=== PATIENT | male | born 1945 | race Caucasian/White ===

== ENCOUNTER 2018-04-14 05:57 | Day surgery (SDC) | payer MEDICARE, OTHER ==
[2018-04-12 10:41] LABS: BASOPHILS # (AUTO) 0.1 X10'3 (0-0.2); BASOPHILS % (AUTO) 0.9 % (0-1); EOSINOPHILS # (AUTO) 0.3 X10'3 (0-0.9); EOSINOPHILS % (AUTO) 4.6 % (0-6); HEMATOCRIT 42.9 % (42.0-52.0); HEMOGLOBIN 14.9 g/dl (14.0-17.9); LYMPHOCYTES # (AUTO) 1.8 X10'3 (1.1-4.8); LYMPHOCYTES % (AUTO) 31.9 % (21-51); MEAN CORPUSCULAR HEMOGLOBIN 31.9 PG (27.0-31.0); MEAN CORPUSCULAR HGB CONC 34.7 % (33.0-36.5); MEAN PLATELET VOLUME 7.9 FL (7.4-10.4); MONOCYTES # (AUTO) 0.4 X10'3 (0-0.9); MONOCYTES % (AUTO) 7.6 % (2-12); NEUTROPHILS # (AUTO) 3.2 X10'3 (1.8-7.7); PLATELET COUNT 200 X10'3 (140-440); RED BLOOD COUNT 4.66 X10'6 (4.70-6.10); RED CELL DISTRIBUTION WIDTH 12.1 % (11.5-14.5); WHITE BLOOD COUNT 5.8 X10'3 (4.5-11.0)
[2018-04-12 10:42] LABS: PARTIAL THROMBOPLASTIN TIME 27 SECONDS (22-32)
[2018-04-12 10:46] LABS: GLUCOSE 140 MG/DL (70-104)
[2018-04-12 10:47] LABS: ALANINE AMINOTRANSFERASE 21 U/L (12-78); ALBUMIN 3.8 G/DL (3.4-5.0); ALBUMIN/GLOBULIN RATIO 1.1 (1.1-1.5); ALKALINE PHOSPHATASE 97 IU/L (46-116); ANION GAP 7 (8-16); ASPARTATE AMINO TRANSFERASE 19 U/L (10-37); BILIRUBIN,TOTAL 0.4 MG/DL (0.1-1.0); BLOOD UREA NITROGEN 16 MG/DL (7-18); BUN/CREATININE RATIO 16.2 (5.4-32.0); CALCIUM 9.1 MG/DL (8.5-10.1); CHLORIDE 104 MMOL/L (99-107); CREATININE 0.99 MG/DL (0.60-1.10); POTASSIUM 4.4 MMOL/L (3.5-5.1); SODIUM 138 MMOL/L (135-145); TOTAL CARBON DIOXIDE 27.1 MMOL/L (24-32); TOTAL PROTEIN 7.3 G/DL (6.4-8.2); eGFR 74 ML/MIN
[2018-04-14] VITALS (15 sets, daily range): BP systolic 112–166; BP diastolic 52–109
[~2018-04-14] VITALS: Ht 182.9 cm; Wt 111.8 kg
[~2018-04-14 05:57] MED LIST: ASPI-611 PO; CINN500C2 PO; MULT-38 PO; OMEG500C3 PO; RAMI2.5C26 PO; RED600TA PO
[2018-04-14] MEDS ORDERED: diphenhydrAMINE 25mg capsule PO PRN (06:10)
[2018-04-14] MEDS ORDERED: dextrose ORAL solution 15 GM/59 ML bottle PO PRN ×2 (06:10)
[2018-04-14] MEDS ORDERED: insulin Lispro (HumaLOG) vial - multi-dose SQ SCH (06:10)
[2018-04-14] MEDS ORDERED: MESSAGE TO PHARMACY PO ONE (06:10)
[2018-04-14] MEDS ORDERED: glucagon, human recombinant 1mg kit SUBCUT PRN (06:10)
[2018-04-14] MEDS ORDERED: LORazepam 0.5 MG tablet PO PRN (06:10)
[2018-04-14] MEDS ORDERED: normal saline 1000ml 1,000 ML IV SCH ×2 (06:10→09:55)
[2018-04-14] MEDS ORDERED: nitroGLYCERIN 0.4mg SUBLingual tab SL PRN (06:10)
[2018-04-14] MEDS ORDERED: dextrose 50%-water 50ml dispensing syringe IV PRN ×2 (06:10)
[2018-04-14] MEDS ORDERED: METF500T PO (06:25)
[2018-04-14] MEDS ORDERED: LOSA25TA96 PO (06:25)
[2018-04-14] MEDS ORDERED: CHOL10002 PO (06:25)
[2018-04-14] MEDS ORDERED: FLEC100T2 PO (06:25)
[2018-04-14] MEDS ORDERED: iohexol 350 MG/ML 50ML vial IV ONE (08:08)
[2018-04-14] MEDS ORDERED: fentaNYL/PF 50MCG/1 ML 2ML syringe ONE (08:08)
[2018-04-14] MEDS ORDERED: LIDOcaine 1% 30ml preserv. free vial ONE (08:08)
[2018-04-14] MEDS ORDERED: iohexol 350MG/ML 100ml bottle IV ONE (08:08)
[2018-04-14] MEDS ORDERED: midazolam 2 mg/2 ml injection ONE ×2 (08:08→09:10)
[2018-04-14] MEDS ORDERED: OXAZEpam 15mg capsule PO PRN (09:55)
[2018-04-14] MEDS ORDERED: ondansetron/PF 4mg/2ml inj IV PRN (09:55)
[2018-04-14] MEDS ORDERED: HYDROcodone/acetaminophen 5mg/325mg tablet PO PRN (09:55)
[2018-04-14] MEDS ORDERED: HYDROcodone/acetaminophen 10/325mg tab PO PRN (09:55)
[2018-04-14] MEDS ORDERED: proCHLORperazine 10 MG/2 ml inj IV PRN (09:55)
[2018-04-14] MEDS ORDERED: insulin glargine (Lantus) pen - multi-dose SQ SCH (21:00)
== END 2018-04-14 17:00 | disposition home or self-care (01) ==
LOC: SSTAY O 05:57
PROVIDERS: ATTEND Internal Medicine Cardiovascular Disease
DX: I25.10 Atherosclerotic heart disease of native coronary artery without angina pectoris (principal); I44.0 Atrioventricular block, first degree; I45.19 Other right bundle-branch block; D65 Disseminated intravascular coagulation [defibrination syndrome]; I10 Essential (primary) hypertension; E11.9 Type 2 diabetes mellitus without complications; M85.88 Other specified disorders of bone density and structure, other site; I48.91 Unspecified atrial fibrillation; E78.5 Hyperlipidemia, unspecified; Z90.79 Acquired absence of other genital organ(s); Z85.46 Personal history of malignant neoplasm of prostate; Z85.828 Personal history of other malignant neoplasm of skin; Z85.51 Personal history of malignant neoplasm of bladder; Z95.1 Presence of aortocoronary bypass graft; Z79.82 Long term (current) use of aspirin; Z79.84 Long term (current) use of oral hypoglycemic drugs; Z79.899 Other long term (current) drug therapy; Z98.890 Other specified postprocedural states; Z82.49 Family history of ischemic heart disease and other diseases of the circulatory system; Z83.511 Family history of glaucoma; Z82.3 Family history of stroke
CPT/HCPCS: 36415; 71046; 80053; 82948; 85025; 85610; 85730; 93005; 93459; 99152; 99153; A6257; C1760; C1769; J1644; J2250; J3010; J3490; J7030; Q0163; Q9967; A4620

== ENCOUNTER 2022-04-02 06:10 | Observation (INO) | payer MEDICARE, OTHER ==
[2022-03-31 12:35] LABS: BASOPHILS % (AUTO) 0.7 % (0-1); EOSINOPHILS # (AUTO) 0.3 X10'3 (0-0.9); HEMATOCRIT 42.6 % (42.0-52.0); HEMOGLOBIN 14.7 g/dl (14.0-17.9); LYMPHOCYTES # (AUTO) 2.1 X10'3 (1.1-4.8); LYMPHOCYTES % (AUTO) 31.6 % (21-51); MEAN CORPUSCULAR HEMOGLOBIN 31.3 PG (27.0-31.0); MEAN CORPUSCULAR HGB CONC 34.5 g/dL (33.0-36.5); MEAN CORPUSCULAR VOLUME 90.8 FL (78-98); MEAN PLATELET VOLUME 7.9 FL (7.4-10.4); MONOCYTES # (AUTO) 0.6 X10'3 (0-0.9); MONOCYTES % (AUTO) 9.2 % (2-12); NEUTROPHILS # (AUTO) 3.6 X10'3 (1.8-7.7); NEUTROPHILS % (AUTO) 54.5 % (42-75); PLATELET COUNT 243 X10'3 (140-440); RED BLOOD COUNT 4.69 X10'6 (4.70-6.10); RED CELL DISTRIBUTION WIDTH 13.1 % (11.5-14.5); WHITE BLOOD COUNT 6.6 X10'3 (4.5-11.0)
[2022-03-31 12:47] LABS: APTT 29 SECONDS (22-32)
[2022-03-31 12:50] LABS: ALANINE AMINOTRANSFERASE 19 U/L (12-78); ALKALINE PHOSPHATASE 104 IU/L (46-116); ANION GAP 12 (8-16); ASPARTATE AMINO TRANSFERASE 17 U/L (10-37); BILIRUBIN,TOTAL 0.4 MG/DL (0.1-1.0); BLOOD UREA NITROGEN 34 MG/DL (7-18); BUN/CREATININE RATIO 22.2 (5.4-32.0); CALCIUM 9.8 MG/DL (8.5-10.1); CHLORIDE 103 MMOL/L (99-107); CREATININE 1.53 MG/DL (0.60-1.10); GLUCOSE 184 MG/DL (70-104); POTASSIUM 4.9 MMOL/L (3.5-5.1); SODIUM 140 MMOL/L (135-145); TOTAL CARBON DIOXIDE 24.9 MMOL/L (24-32); eGFR 44 ML/MIN
[~2022-04-02] VITALS: Ht 182.9 cm; Wt 107.6 kg
[2022-04-02] VITALS (13 sets, daily range): BP systolic 98–137; BP diastolic 51–84
[~2022-04-02 06:10] MED LIST changes: +CHOL10002 PO; +FLEC100T2 PO; +LOSA25TA96 PO; +METF500T PO; -MULT-38 PO; -RAMI2.5C26 PO
[2022-04-02] MEDS ORDERED: LORazepam 0.5 MG tablet PO PRN (06:45)
[2022-04-02] MEDS ORDERED: nitroGLYCERIN 0.4mg SUBLingual tab SL PRN ×2 (06:45→10:55)
[2022-04-02] MEDS ORDERED: diphenhydrAMINE 25mg capsule PO PRN (06:45)
[2022-04-02] MEDS ORDERED: normal saline 1,000 ML IV SCH (06:45)
[2022-04-02] MEDS ORDERED: GEMF600T89 PO (07:16)
[2022-04-02] MEDS ORDERED: SEMA2PEN SQ (07:16)
[2022-04-02] MEDS ORDERED: METO-395 PO (07:16)
[2022-04-02] MEDS ORDERED: APIX5TAB3 PO (07:16)
[2022-04-02] MEDS ORDERED: midazolam 1 mg/ML 2ml injection ONE (07:40)
[2022-04-02] MEDS ORDERED: iohexol 350MG/ML 100ml bottle IV ONE ×3 (07:40→09:19)
[2022-04-02] MEDS ORDERED: LIDOcaine 1%/PF 5ML 10 MG/ML VIAL ONE (07:40)
[2022-04-02] MEDS ORDERED: fentaNYL/PF 50MCG/1 ML 2ML syringe ONE (07:40)
[2022-04-02] MEDS ORDERED: heparin 25,000 UNIT/250ml bag 0 ML IV ONE (09:01)
[2022-04-02] MEDS ORDERED: tirofiban 5mg in NS 100mL 0 ML IV ONE (09:01)
[2022-04-02] MEDS ORDERED: heparin 1,000unit/ml 10ml vial 10 ML ONE (09:02)
[2022-04-02] MEDS ORDERED: tirofiban 5mg in NS 100mL 100 ML IV ONE (09:12)
[2022-04-02] MEDS ORDERED: ticagrelor 90mg tablet ONE (09:54)
[2022-04-02] MEDS ORDERED: aspirin 325mg tablet ONE (09:55)
[2022-04-02] MEDS ORDERED: OXAZEpam 15mg capsule PO PRN (10:55)
[2022-04-02] MEDS ORDERED: proCHLORperazine 10 MG/2 ml inj IV PRN (10:55)
[2022-04-02] MEDS ORDERED: magnesium hydroxide 30ml (MOM) UD suspension PO PRN (10:55)
[2022-04-02] MEDS ORDERED: cyclobenzaprine 10mg tablet PO PRN (10:55)
[2022-04-02] MEDS ORDERED: acetaminophen 325mg tablet PO PRN ×2 (10:55→11:35)
[2022-04-02] MEDS ORDERED: HYDROcodone/acetaminophen 10/325mg tab PO PRN ×2 (10:55)
[2022-04-02] MEDS ORDERED: ticagrelor 90mg tablet PO ONE (11:00)
[2022-04-02] MEDS ORDERED: tirofiban 12.5mg in NS 250mL IV SCH (11:00)
[2022-04-02] MEDS ORDERED: ondansetron/PF 4mg/2ml inj IV PRN ×2 (11:05→11:35)
[2022-04-02] MEDS ORDERED: HYDROcodone/acetaminophen 5mg/325mg tablet PO PRN (11:05)
[2022-04-02] MEDS ORDERED: TIROFIBAN IV SCH (11:31)
[2022-04-02] MEDS ORDERED: NS IV SCH (11:31)
[2022-04-02] MEDS ORDERED: dextrose 50%-water 50ml dispensing syringe IV PRN ×2 (11:35)
[2022-04-02] MEDS ORDERED: insulin Lispro (HumaLOG) vial - multi-dose SQ SCH (11:35)
[2022-04-02] MEDS ORDERED: DEXTROSE 15 GM of carb/4 tabs (each vial/BOTTLE has 4 tablets) PO PRN ×2 (11:35)
[2022-04-02] MEDS ORDERED: POTASSIUM BICARB 20meq eff tab 20 MEQ TABLET.EFF PO PRN ×2 (11:35)
[2022-04-02] MEDS ORDERED: magnesium 4gm in 100ml NS 100 ML IV PRN (11:35)
[2022-04-02] MEDS ORDERED: potassium CL 10mEq/100ml bag 100 ML IV PRN (11:35)
[2022-04-02] MEDS ORDERED: mag hydrox/Alum hydrox/simeth 30ml oral suspension PO PRN (11:35)
[2022-04-02] MEDS ORDERED: magnesium 2GM in 50ml NS 50 ML IV PRN (11:35)
[2022-04-02] MEDS ORDERED: glucagon, human recombinant 1mg kit SUBCUT PRN (11:35)
[2022-04-02] MEDS ORDERED: MESSAGE TO PHARMACY PO ONE (11:35)
[2022-04-02] MEDS ORDERED: tirofiban 5mg in NS 100mL 100 ML IV SCH (11:36)
[2022-04-02] MEDS: sodium chloride 0.45% 1,000 ML IV SCH ×2 (11:59→23:05)
--- NOTE | 2022-04-02 14:00 | NUR ---
Received report from Flora MASSEY. VSS, Denies pain, Sheath to right groin site stable.
--- NOTE | 2022-04-02 14:15 | NUR ---
CCL at bedsied, sheath removed and angioseal inplanted. Pt tolerated procedure well.
[2022-04-02] MEDS ORDERED: CHOL400T8 PO (15:25)
--- NOTE | 2022-04-02 16:00 | NUR ---
Transferred pt to room 3015B with all belongings, at bedside. Report given to [place] MASSEY. VSS, denies pain, right groin site stable, dressing CD&I.
--- NOTE | 2022-04-02 18:21 | NUR ---
Problems reprioritized. Patient report given, questions answered & plan of care reviewed with SHILPA KEARNS.
[2022-04-02] MEDS ORDERED: docusate sod 100mg capsule PO SCH (20:00)
[2022-04-02] MEDS ORDERED: gemfibrozil 600mg tablet PO SCH (20:00)
[2022-04-02] MEDS: apixaban 5mg tablet PO SCH (20:59)
[2022-04-02] MEDS: ticagrelor 90mg tablet PO SCH (20:59)
[2022-04-02] MEDS ORDERED: insulin glargine (Lantus) pen - multi-dose SQ SCH (21:00)
[2022-04-02] MEDS: docusate sod 100mg capsule PO SCH (21:01)
[2022-04-02] MEDS: K and/or MAG REPLACEMENT MC SCH (21:14)
[2022-04-03 02:00] VITALS: BP 128/70
[2022-04-03 06:00] VITALS: BP 120/73
--- NOTE | 2022-04-03 06:25 | NUR ---
Problems reprioritized. Patient report given, questions answered & plan of care reviewed with SHILPA Schofield.
[2022-04-03 06:36] LABS: BASOPHILS % (AUTO) 0.5 % (0-1); EOSINOPHILS # (AUTO) 0.3 X10'3 (0-0.9); HEMOGLOBIN 13.9 g/dl (14.0-17.9); LYMPHOCYTES # (AUTO) 1.5 X10'3 (1.1-4.8); LYMPHOCYTES % (AUTO) 22.4 % (21-51); MEAN CORPUSCULAR HEMOGLOBIN 32.2 PG (27.0-31.0); MEAN CORPUSCULAR HGB CONC 35.7 g/dL (33.0-36.5); MEAN CORPUSCULAR VOLUME 90.3 FL (78-98); MEAN PLATELET VOLUME 7.9 FL (7.4-10.4); MONOCYTES # (AUTO) 0.6 X10'3 (0-0.9); MONOCYTES % (AUTO) 9.3 % (2-12); NEUTROPHILS # (AUTO) 4.2 X10'3 (1.8-7.7); NEUTROPHILS % (AUTO) 63.8 % (42-75); PLATELET COUNT 209 X10'3 (140-440); RED BLOOD COUNT 4.32 X10'6 (4.70-6.10); RED CELL DISTRIBUTION WIDTH 13.2 % (11.5-14.5); WHITE BLOOD COUNT 6.6 X10'3 (4.5-11.0)
[2022-04-03 07:32] LABS: ALANINE AMINOTRANSFERASE 18 U/L (12-78); ALBUMIN 3.6 G/DL (3.4-5.0); ALBUMIN/GLOBULIN RATIO 0.9 (1.1-1.5); ALKALINE PHOSPHATASE 84 IU/L (46-116); ANION GAP 13 (8-16); ASPARTATE AMINO TRANSFERASE 19 U/L (10-37); BILIRUBIN,TOTAL 0.4 MG/DL (0.1-1.0); BLOOD UREA NITROGEN 26 MG/DL (7-18); BUN/CREATININE RATIO 23.2 (5.4-32.0); CHLORIDE 106 MMOL/L (99-107); CHOL/HDL RATIO 5.8 (0.00-4.99); CHOLESTEROL 193 MG/DL (0-200); CREATININE 1.12 MG/DL (0.60-1.10); GLUCOSE 150 MG/DL (70-104); HDL CHOLESTEROL 33 MG/DL (35-60); LDL CHOLESTEROL 115 MG/DL (50-100); MAGNESIUM 1.8 MG/DL (1.5-2.4); POTASSIUM 4.4 MMOL/L (3.5-5.1); SODIUM 140 MMOL/L (135-145); TOTAL CARBON DIOXIDE 20.6 MMOL/L (24-32); TOTAL PROTEIN 7.4 G/DL (6.4-8.2); TRIGLYCERIDES 179 MG/DL (20-135); eGFR 63 ML/MIN
[2022-04-03] MEDS ORDERED: SEMAGLUTIDE 2 MG/0.75 ML SQ SCH (08:00)
[2022-04-03] MEDS ORDERED: metoprolol succinate 25mg (24-HOUR) SR. Tablet PO SCH (08:00)
[2022-04-03] MEDS: K and/or MAG REPLACEMENT MC SCH (08:00)
[2022-04-03] MEDS ORDERED: aspirin 81mg, enteric-coated 1 TAB TABLET.DR PO SCH (08:00)
[2022-04-03] MEDS ORDERED: cholecalciferol (vitamin D3) 400 unit (10mcg) tablet PO SCH (08:00)
[2022-04-03] MEDS ORDERED: losartan 25mg tablet PO SCH (08:00)
[2022-04-03] MEDS ORDERED: ASPI-1071 PO (08:23)
[2022-04-03] MEDS: apixaban 5mg tablet PO SCH (09:10)
[2022-04-03] MEDS: docusate sod 100mg capsule PO SCH (09:10)
[2022-04-03] MEDS: ticagrelor 90mg tablet PO SCH (09:10)
[2022-04-03] MEDS ORDERED: gemfibrozil 600mg tablet PO SCH (10:04)
--- NOTE | 2022-04-03 10:15 | NUR ---
Dr. Rachel called. Ok to discharge pt.
[2022-04-03 11:00] VITALS: BP 130/85
[2022-04-03] MEDS ORDERED: TICA90TA PO (11:27)
--- NOTE | 2022-04-03 11:28 | NUR ---
Discharge pending bringing Brilinta prescription to hospital. CM aware.
--- NOTE | 2022-04-03 16:30 | NUR ---
DISCHARGE NOTE: brought in one month brilinta medications. Was able to use coupon. Pt. PIV removed, cannula intact, no s/sx bleeding noted. Tele removed and returned. Reviewed all medications, possible ASE and scheduling. Pt. knows the importance of medication compliance. Pt. knows to f/u with [facility] and already has an appointment with his PCP next week. Pt. knows to start Metformin again on Thursday.
== END 2022-04-03 12:20 | disposition home or self-care (01) ==
LOC: SSTAY O 06:10 → UNDOADMOB 11:00 → PCU 3S 11:00
PROVIDERS: ADMIT Internal Medicine Cardiovascular Disease; ATTEND Internal Medicine Cardiovascular Disease
DX: I25.10 Atherosclerotic heart disease of native coronary artery without angina pectoris (principal); I47.1 Supraventricular tachycardia; I45.5 Other specified heart block; I48.0 Paroxysmal atrial fibrillation; I10 Essential (primary) hypertension; E11.9 Type 2 diabetes mellitus without complications; E78.5 Hyperlipidemia, unspecified; N17.9 Acute kidney failure, unspecified; F17.290 Nicotine dependence, other tobacco product, uncomplicated; Z79.01 Long term (current) use of anticoagulants; Z79.02 Long term (current) use of antithrombotics/antiplatelets; Z79.82 Long term (current) use of aspirin; Z79.899 Other long term (current) drug therapy; Z85.46 Personal history of malignant neoplasm of prostate; Z95.1 Presence of aortocoronary bypass graft
CPT/HCPCS: 36415; 71046; 80053; 80061; 82948; 83036; 83735; 85025; 85610; 85730; 93005; 93459; C1725; C1751; C1760; C1769; C1874; C1894; C9600; G0378; J1644; J2250; J3010; J3246; J3490; J7030; J7040; Q0163; Q9967; 99152; 99153; A4620; A5120; A6258; A6449; J1815

== ENCOUNTER 2022-04-04 00:57 | Emergency (ER) | payer MEDICARE, OTHER ==
[~2022-04-04] VITALS: Ht 182.9 cm; Wt 103.6 kg
[~2022-04-04 00:57] MED LIST changes: +APIX5TAB3 PO; +ASPI-1071 PO; +CHOL400T8 PO; +GEMF600T89 PO; +METO-395 PO; +SEMA2PEN SQ; +TICA90TA PO
[2022-04-04 01:05] VITALS: BP 156/93
== END 2022-04-04 04:04 | disposition left against medical advice (07) ==
LOC: ER 00:57
DX: T81.9XXA Unspecified complication of procedure, initial encounter (principal); Z53.21 Procedure and treatment not carried out due to patient leaving prior to being seen by health care provider